=== PATIENT | female | born 1995 | race African-American/Black ===

== ENCOUNTER 2020-05-22 17:08 | Emergency (ER) | payer OTHER ==
[~2020-05-22] VITALS: Ht 182.9 cm; Wt 72.7 kg
[~2020-05-22 17:08] MED LIST: NO HOME MEDICATIONS
[2020-05-22 17:23] VITALS: BP 102/65; TEMP 97.3
[2020-05-22 19:05] VITALS: PULSE 69
== END 2020-05-22 19:05 | disposition home or self-care (01) ==
LOC: COL.ER 17:08
DX: S49.91XA Unspecified injury of right shoulder and upper arm, initial encounter (principal); Z88.1 Allergy status to other antibiotic agents; Z88.8 Allergy status to other drugs, medicaments and biological substances; X50.0XXA Overexertion from strenuous movement or load, initial encounter; Y99.0 Civilian activity done for income or pay
CPT/HCPCS: J1885

== ENCOUNTER → 2020-06-17 | Outpatient (CLI) | payer OTHER | LOC: COL.RAD 13:03 | DX: S43.401A Unspecified sprain of right shoulder joint, initial encounter (principal) | CPT/HCPCS: A9585; Q9967 ==

== ENCOUNTER 2021-08-03 14:00 | Emergency (ER) | payer OTHER ==
[~2021-08-03] VITALS: Ht 182.9 cm; Wt 86.4 kg
[2021-08-03 15:12] LABS: BASO % 0.4 % (0.0-2.0); EOS # 0.7 K/mm3 (0.0-0.7); EOS % 7.5 % (0.0-4.0); GRAN # 6.3 K/mm3 (1.4-6.5); GRAN % 63.2 % (42.2-75.2); HEMATOCRIT 38.3 % (37.0-47.0); HEMOGLOBIN 13.3 g/dl (12.5-16.0); LYMPH % 20.2 % (20.0-51.0); MEAN CELL VOLUME 89 fl (80.0-100.0); MEAN CORPUSCULAR HEMOGLOBIN 31 pg (27-31); MEAN CORPUSCULAR HGB CONC 35 g/dl (33.0-37.0); MEAN PLATELET VOLUME 10.3 fl (7.4-10.4); MONO # 0.8 K/mm3 (0.1-0.6); MONO % 8.5 % (1.7-9.3); PLATELET COUNT 231 K/mm3 (130-400); RED BLOOD COUNT 4.29 M/mm3 (4.10-5.30); REDCELL DISTRIBUTION WIDTH-CV 12.1 % (11.5-14.5)
[2021-08-03 15:23] LABS: ALBUMIN 4.4 gm/dL (3.5-5.0); BILIRUBIN,TOTAL 0.4 mg/dL (0.2-1.2); CALCIUM 9.3 mg/dL (8.4-10.2); CREATININE, serum 0.78 mg/dL (0.57-1.11); POTASSIUM 3.9 mmol/L (3.5-4.5); TOTAL PROTEIN 8.4 gm/dL (6.2-8.1)
[2021-08-03 15:57] VITALS: BP 120/76; PULSE 93; TEMP 99
== END 2021-08-03 16:02 | disposition home or self-care (01) ==
LOC: COL.ER 14:00
PROVIDERS: Student in an Organized Health Care Education/Training Program
DX: R06.00 Dyspnea, unspecified (principal); R06.2 Wheezing; Z20.822 Contact with and (suspected) exposure to COVID-19

== ENCOUNTER 2021-12-10 14:52 | Emergency (ER) | payer OTHER ==
[~2021-12-10] VITALS: Ht 182.9 cm; Wt 86.4 kg
[2021-12-10 15:58] VITALS: BP 102/62; TEMP 100.6
[2021-12-10 17:19] LABS: BASO % 0.3 % (0.0-2.0); EOS # 0.1 K/mm3 (0.0-0.7); GRAN # 10.4 K/mm3 (1.4-6.5); GRAN % 89.1 % (42.2-75.2); HEMOGLOBIN 12.1 g/dl (12.5-16.0); LYMPH # 0.3 K/mm3 (1.2-3.4); LYMPH % 2.8 % (20.0-51.0); MEAN CELL VOLUME 92 fl (80.0-100.0); MEAN CORPUSCULAR HEMOGLOBIN 30 pg (27-31); MEAN CORPUSCULAR HGB CONC 33 g/dl (33.0-37.0); MEAN PLATELET VOLUME 10.6 fl (7.4-10.4); MONO # 0.7 K/mm3 (0.1-0.6); MONO % 6.2 % (1.7-9.3); PLATELET COUNT 209 K/mm3 (130-400); RED BLOOD COUNT 3.99 M/mm3 (4.10-5.30); REDCELL DISTRIBUTION WIDTH-CV 12.1 % (11.5-14.5)
[2021-12-10 17:20] LABS: HEMATOCRIT 36.6 % (37.0-47.0)
[2021-12-10 17:33] LABS: ALBUMIN 4.2 gm/dL (3.5-5.0); BILIRUBIN,TOTAL 0.4 mg/dL (0.2-1.2); C-REACTIVE PROTEIN 0.14 mg/dL (0.00-0.50); CALCIUM 9.6 mg/dL (8.4-10.2); CREATININE, serum 0.78 mg/dL (0.57-1.11); TOTAL PROTEIN 7.6 gm/dL (6.2-8.1)
[2021-12-10 18:37] LABS: COLLECTION METHOD CLEAN CATCH
[2021-12-10 18:49] LABS: MUCOUS Present (NOT PRESENT); PH 7 (5-8); URINE APPEARANCE Hazy (CLEAR/HAZY); URINE BACTERIA None Seen /hpf (NONE SEEN); URINE BLOOD 1+ (NEGATIVE); URINE COLOR Yellow (YELLOW); URINE GLUCOSE Negative (NEGATIVE); URINE KETONE Negative (NEGATIVE); URINE NITRATE Negative (NEGATIVE); URINE PROTEIN(semi-quant) Negative (NEGATIVE); URINE UROBILINOGEN Negative (NEGATIVE)
[2021-12-10 19:31] VITALS: PULSE 76
== END 2021-12-10 19:33 | disposition home or self-care (01) ==
LOC: COL.ER 14:52
PROVIDERS: Physician Assistant
DX: U07.1 COVID-19 (principal); Z28.310 Unvaccinated for COVID-19
CPT/HCPCS: J1885; J2550; J7030

== ENCOUNTER 2021-12-19 18:34 | Emergency (ER) | payer OTHER ==
[~2021-12-19] VITALS: Ht 185.4 cm; Wt 79.5 kg
[2021-12-19 18:38] VITALS: TEMP 98.4
[2021-12-19 19:02] LABS: BASO % 0.2 % (0.0-2.0); EOS # 0.1 K/mm3 (0.0-0.7); EOS % 1.4 % (0.0-4.0); GRAN # 4.9 K/mm3 (1.4-6.5); GRAN % 57.5 % (42.2-75.2); HEMATOCRIT 37.2 % (37.0-47.0); HEMOGLOBIN 12.6 g/dl (12.5-16.0); LYMPH # 2.9 K/mm3 (1.2-3.4); LYMPH % 34.4 % (20.0-51.0); MEAN CELL VOLUME 91 fl (80.0-100.0); MEAN CORPUSCULAR HEMOGLOBIN 31 pg (27-31); MEAN CORPUSCULAR HGB CONC 34 g/dl (33.0-37.0); MEAN PLATELET VOLUME 10.5 fl (7.4-10.4); MONO # 0.5 K/mm3 (0.1-0.6); MONO % 6.3 % (1.7-9.3); PLATELET COUNT 263 K/mm3 (130-400); RED BLOOD COUNT 4.09 M/mm3 (4.10-5.30)
[2021-12-19 19:20] LABS: ALBUMIN 4.8 gm/dL (3.5-5.0); BILIRUBIN,TOTAL 0.9 mg/dL (0.2-1.2); C-REACTIVE PROTEIN 0.06 mg/dL (0.00-0.50); CALCIUM 9.6 mg/dL (8.4-10.2); CREATININE, serum 0.73 mg/dL (0.57-1.11); POTASSIUM 4.1 mmol/L (3.5-4.5); TOTAL PROTEIN 8.4 gm/dL (6.2-8.1)
[2021-12-19] MEDS ORDERED: PHENERGAN 25 TA25 MG PO (20:26)
[2021-12-19 21:36] VITALS: BP 120/79; PULSE 76
== END 2021-12-19 21:36 | disposition home or self-care (01) ==
LOC: COL.ER 18:34
PROVIDERS: Emergency Medicine
DX: R11.2 Nausea with vomiting, unspecified (principal); R10.84 Generalized abdominal pain; Z32.02 Encounter for pregnancy test, result negative; Z86.16 Personal history of COVID-19; Z28.310 Unvaccinated for COVID-19
CPT/HCPCS: J2250; J2550; J7030

== ENCOUNTER 2022-01-24 17:26 | Emergency (ER) | payer OTHER ==
[~2022-01-24] VITALS: Ht 182.9 cm; Wt 88.6 kg
[~2022-01-24 17:26] MED LIST changes: +PHENERGAN 25 TA25 MG PO
[2022-01-24 17:52] VITALS: TEMP 98.4
[2022-01-24 18:34] LABS: COLLECTION METHOD CLEAN CATCH
[2022-01-24 18:48] LABS: URINE APPEARANCE Cloudy (CLEAR/HAZY); URINE COLOR Yellow (YELLOW)
[2022-01-24 18:49] LABS: URINE BLOOD 1+ (NEGATIVE); URINE GLUCOSE Negative (NEGATIVE); URINE KETONE 3+ (NEGATIVE); URINE NITRATE Negative (NEGATIVE); URINE PROTEIN(semi-quant) 1+ (NEGATIVE); URINE UROBILINOGEN 0.2 E.U/dL (0.2-1.0)
[2022-01-24 18:50] LABS: MUCOUS Present (NOT PRESENT); URINE BACTERIA None Seen /hpf (NONE SEEN)
[2022-01-24 19:20] LABS: BASO % 0.3 % (0.0-2.0); EOS # 0.2 K/mm3 (0.0-0.7); EOS % 1.3 % (0.0-4.0); GRAN # 11.6 K/mm3 (1.4-6.5); GRAN % 77.1 % (42.2-75.2); HEMOGLOBIN 11.6 g/dl (12.5-16.0); LYMPH # 2.4 K/mm3 (1.2-3.4); LYMPH % 16.2 % (20.0-51.0); MEAN CELL VOLUME 92 fl (80.0-100.0); MEAN CORPUSCULAR HEMOGLOBIN 31 pg (27-31); MEAN CORPUSCULAR HGB CONC 34 g/dl (33.0-37.0); MEAN PLATELET VOLUME 9.9 fl (7.4-10.4); MONO # 0.7 K/mm3 (0.1-0.6); MONO % 4.8 % (1.7-9.3); PLATELET COUNT 279 K/mm3 (130-400); RED BLOOD COUNT 3.74 M/mm3 (4.10-5.30); REDCELL DISTRIBUTION WIDTH-CV 12.9 % (11.5-14.5)
[2022-01-24 19:21] LABS: HEMATOCRIT 34.5 % (37.0-47.0)
[2022-01-24 19:38] LABS: ALBUMIN 4.4 gm/dL (3.5-5.0); BILIRUBIN,TOTAL 0.5 mg/dL (0.2-1.2); CALCIUM 9.4 mg/dL (8.4-10.2); CREATININE, serum 0.7 mg/dL (0.57-1.11); POTASSIUM 3.8 mmol/L (3.5-4.5); TOTAL PROTEIN 7.6 gm/dL (6.2-8.1)
[2022-01-24] MEDS ORDERED: REGLAN 10MG10 MG/TAB PO (21:13)
[2022-01-24 21:25] VITALS: BP 116/64; PULSE 68
== END 2022-01-24 21:25 | disposition home or self-care (01) ==
LOC: COL.ER 17:26
PROVIDERS: Emergency Medicine
DX: O21.9 Vomiting of pregnancy, unspecified (principal); O99.119 Other diseases of the blood and blood-forming organs and certain disorders involving the immune mechanism complicating pregnancy, unspecified trimester; D72.829 Elevated white blood cell count, unspecified; R82.4 Acetonuria; Z88.8 Allergy status to other drugs, medicaments and biological substances; Z28.310 Unvaccinated for COVID-19; Z3A.00 Weeks of gestation of pregnancy not specified
CPT/HCPCS: J2550; J7042

== ENCOUNTER 2022-07-13 13:32 | Outpatient (CLI) | payer OTHER, MEDICAID ==
[~2022-07-13] VITALS: Ht 182.9 cm; Wt 92.5 kg
[~2022-07-13 13:32] MED LIST changes: +REGLAN 10MG10 MG/TAB PO; +ZITHROMAX Z PA250 MG PO
[2022-07-13 13:40] VITALS: BP 110/59; PULSE 73; TEMP 98.2
--- NOTE | 2022-07-13 13:40 | NUR ---
Presents to labor and delivery for right sided pain. Assessment done, questions offered and answered.
[2022-07-13 14:00] VITALS: BP 109/62; PULSE 71
[2022-07-13 14:30] VITALS: BP 110/62
[2022-07-13 14:36] LABS: COLLECTION METHOD CLEAN CATCH
[2022-07-13 14:43] LABS: URINE APPEARANCE Clear (CLEAR/HAZY); URINE COLOR Yellow (YELLOW)
[2022-07-13 14:45] LABS: URINE BLOOD TRACE-LYSED (NEGATIVE); URINE GLUCOSE Negative (NEGATIVE); URINE KETONE Negative (NEGATIVE); URINE NITRATE Negative (NEGATIVE); URINE PROTEIN(semi-quant) 1+ (NEGATIVE); URINE UROBILINOGEN 0.2 E.U/dL (0.2-1.0)
[2022-07-13 14:55] LABS: MUCOUS Present (NOT PRESENT); URINE BACTERIA None Seen /hpf (NONE SEEN); URINE WBC 0-2 /hpf (0-2)
--- NOTE | 2022-07-13 15:15 | NUR ---
Dismissed to home with instructions, verbalizes understanding. To e.r entrance via wheel chair, alert, stable.
== END 2022-07-13 15:15 | disposition home or self-care (01) ==
LOC: LDRO 13:32
PROVIDERS: Obstetrics & Gynecology
DX: O26.893 Other specified pregnancy related conditions, third trimester (principal); R52 Pain, unspecified; Z3A.29 29 weeks gestation of pregnancy

== ENCOUNTER 2022-08-05 12:10 | Outpatient (CLI) | payer OTHER, MEDICAID ==
[~2022-08-05] VITALS: Ht 182.9 cm; Wt 93.1 kg
[2022-08-05 12:42] VITALS: BP 118/69; PULSE 100; TEMP 98.2
[2022-08-05] MEDS ORDERED: SLOW FE142 MG PO (12:48)
[2022-08-05] MEDS ORDERED: TYLENOL 500MG500 MG PO (12:48)
[2022-08-05] MEDS ORDERED: PRENATAL TABLET PO (12:49)
[2022-08-05] MEDS ORDERED: BENADRYL50 MG PO (12:50)
--- NOTE | 2022-08-05 13:00 | NUR ---
1215- PT TO UNIT AMBULATORY WITH FOB WITH CONCERNS OF POSSIBLE SROM AT 1000 TODAY. PT ORIENTED TO ROOM, CHANGED INTO GOWN. EFMX2 APPLIED, VS OBTAINED. PT'S UNDERWEAR DAMP BUT AMNIOSWAB NEGATIVE, AMNIOSWAB OF VAGINA ALSO NEGATIVE, SVE OF FINGERTIP/-3, NO FLUID VISUALIZED AT THE PERINEUM PRIOR TO OR AFTER SVE. 1235- DR. TENORIO ON UNIT, UPDATED ON PT CONCERNS AND THIS NURSE'S FINDINGS. PT MAY DC HOME PER DR. TENORIO. 1242- MONITORING DC'D AT THIS TIME. QUESTIONS ENCOURAGED AND ANSWERED. PT ALLOWED TO CHANGE INTO OWN CLOTHES WHILE DISCHARGE PAPERWORK PREPARED. 1300- DISCHARGE INSTRUCTIONS REVIEWED WITH PT AND FOB. EDUCATED THAT INCREASED VAGINAL DISCHARGE IS COMMON AND NORMAL DURING THIS TIME IN . INSTRUCTED THAT IF SHE HAD ANY FURTHER CONCERNS OF POSSIBLE SROM TO WEAR A PERIPAD AND WALK FOR ABOUT AN HOUR CALL THE UNIT OR TW IF SHE HAS CONCERNS ABOUT THE AMOUNT. INSTRUCTED TO ALSO RETURN IF SHE HAS VAGINAL BLEEDING, CONSISTENT/PAINFUL CTX, OR DECREASED MOVEMENT. QUESTIONS ENCOURAGED AND ANSWERED. PT AND FOB VERBALIZED UNDERSTANDING. OFF UNIT AMBULATORY FOR HOME.
== END 2022-08-05 13:00 | disposition home or self-care (01) ==
LOC: LDRO 12:10
DX: Z34.93 Encounter for supervision of normal pregnancy, unspecified, third trimester (principal); Z3A.32 32 weeks gestation of pregnancy

== ENCOUNTER 2023-09-26 06:41 | Emergency (ER) | payer MEDICAID ==
[~2023-09-26] VITALS: Ht 182.9 cm; Wt 81.8 kg
[~2023-09-26 06:41] MED LIST changes: +BENADRYL50 MG PO; +MOTRIN 800800 MG/TAB PO; +PRENATAL TABLET PO; +SLOW FE142 MG PO; +TYLENOL 500MG500 MG PO
[2023-09-26 06:45] VITALS: TEMP 98.3
[2023-09-26] MEDS ORDERED: droPERidol 2.5 MG/ML 2 ML VIAL IV ONE (07:15)
[2023-09-26] MEDS ORDERED: Morphine 4 MG/ML VIAL IV PRN (07:15)
[2023-09-26] MEDS ORDERED: NS 1,000 ML IV ONE (07:15)
[2023-09-26 07:32] LABS: BASO # 0.1 K/mm3 (0.0-0.2); BASO % 0.6 % (0.0-2.0); EOS # 1.5 K/mm3 (0.0-0.7); EOS % 11.9 % (0.0-4.0); GRAN # 6.7 K/mm3 (1.4-6.5); GRAN % 54.9 % (42.2-75.2); HEMATOCRIT 38.5 % (37.0-47.0); HEMOGLOBIN 12.9 g/dl (12.5-16.0); LYMPH # 3.2 K/mm3 (1.2-3.4); LYMPH % 26.3 % (20.0-51.0); MEAN CELL VOLUME 94 fl (80.0-100.0); MEAN CORPUSCULAR HEMOGLOBIN 32 pg (27-31); MEAN CORPUSCULAR HGB CONC 34 g/dl (33.0-37.0); MEAN PLATELET VOLUME 10.9 fl (7.4-10.4); MONO # 0.7 K/mm3 (0.1-0.6); PLATELET COUNT 241 K/mm3 (130-400); RED BLOOD COUNT 4.09 M/mm3 (4.10-5.30); REDCELL DISTRIBUTION WIDTH-CV 12.5 % (11.5-14.5)
[2023-09-26 07:48] LABS: ALBUMIN 4.1 g/dL (3.5-5.0); BILIRUBIN,TOTAL 0.3 mg/dL (0.2-1.2); CALCIUM 9.1 mg/dL (8.4-10.2); CREATININE, serum 0.72 mg/dL (0.57-1.11); TOTAL PROTEIN 7.6 g/dl (6.2-8.1)
[2023-09-26 08:11] VITALS: BP 115/77; PULSE 85
== END 2023-09-26 08:15 | disposition left against medical advice (07) ==
LOC: COL.ER 06:41
PROVIDERS: Personal Emergency Response Attendant
DX: R10.30 Lower abdominal pain, unspecified (principal)
CPT/HCPCS: J1790; J2270; J7030

== ENCOUNTER → 2023-12-05 | Outpatient (CLI) | payer MEDICAID ==
[~2023-12-05] MED LIST changes: +Iohexol 300 - 100 ML VIAL IV ONE; +NS 100 ML IV SCH
== END ==
LOC: COL.RAD 07:23
DX: D68.51 Activated protein C resistance (principal); R06.02 Shortness of breath
CPT/HCPCS: Q9967

== ENCOUNTER → 2023-12-21 | Outpatient (CLI) | payer MEDICAID ==
[~2023-12-21] MED LIST changes: +Albuterol 0.083% Neb Soln 2.5 MG/3 ML UD IH ONE; -Iohexol 300 - 100 ML VIAL IV ONE; -NS 100 ML IV SCH
== END ==
LOC: COL.CARD 09:47
DX: R06.02 Shortness of breath (principal); D68.51 Activated protein C resistance

== ENCOUNTER 2024-03-04 22:31 | Emergency (ER) | payer SELFPAY ==
[~2024-03-04] VITALS: Ht 182.9 cm; Wt 86.4 kg
[~2024-03-04 22:31] MED LIST changes: -Albuterol 0.083% Neb Soln 2.5 MG/3 ML UD IH ONE
[2024-03-04 22:36] VITALS: TEMP 98.6
[2024-03-05 01:30] VITALS: BP 125/75; PULSE 75
== END 2024-03-05 01:30 | disposition home or self-care (01) ==
LOC: COL.ER 22:31
DX: S60.031A Contusion of right middle finger without damage to nail, initial encounter (principal); W23.2XXA Caught, crushed, jammed or pinched between a moving and stationary object, initial encounter